=== PATIENT | female | born 1970 | race Caucasian/White ===

== ENCOUNTER → 2017-05-02 | Day surgery (SDC) | payer OTHER ==
[~2017-05-02] VITALS: Ht 177.8 cm; Wt 81.5 kg
[~2017-05-02] MED LIST: *MEPERIDINE 25 MG INJ VIAL PERIprocedural Use ONLY ONE; ACETAMINOPHEN/HYDROcodone 325 MG/5 MG TAB PO PRN; BUPIVACAINE/EPINEPHRINE 0.5% PF 10 ML VIAL INFIL ONE; CHLORHEXIDINE GLUCONATE 2 % 1 PACK (2 CLOTHS) TOPICAL PRN; CHLORHEXIDINE GLUCONATE 4% SOLN 120 ML BTL TOPICAL SCH; ESTR0.5T PO; FAMOTIDINE 20 MG/2 ML VIAL ONE; GABA300C5 PO; HYDR-4107 PO; INSULIN HUMAN REGULAR 1,000 UNITS/10 ML VIAL SQ PRN; KETOROLAC TROMETHAMINE 30 MG/ML (IVP) VIAL IM PRN; LACTATED RINGER'S 1000 ML IV PRN; MELO-1 PO; METOPROLOL TARTRATE 25 MG TAB PO PRN; MIDAZOLAM HCL 2 MG/2 ML VIAL ONE; MORPHINE SULFATE 8 MG/ML INJ ONE; ONDANSETRON HCL 4 MG/2 ML VIAL IV PUSH ONE; ONDANSETRON HCL 4 MG/2 ML VIAL IV PUSH PRN; POVIDONE IODINE 5% (ANTISEPSIS KIT) 4 APPLICATIONS EACH NARE PRN; PROPOFOL 200 MG/20 ML AMP IV ONE; SODIUM CHLORID 0.9% 500 ML IV PRN; TRIAMCINOLONE ACETONIDE 40 MG/ML VIAL ONE; fentaNYL CITRATE 250 MCG/5 ML AMP ONE
[2017-05-02 10:55] VITALS: PULSE 84
[2017-05-02 11:45] VITALS: PULSE 64; TEMP 97.7
[2017-05-02 12:30] VITALS: BP 139/87; PULSE 72; RESP 16; O2SAT 99
--- NOTE | 2017-05-05 09:15 | MP ---
cc: ROMAIN BARNES M.D. DATE OF SURGERY 05/02/2017 PREOPERATIVE DIAGNOSIS Internal derangement of the right knee joint. POSTOPERATIVE DIAGNOSIS Tear lateral meniscus right knee joint with osteochondral lesion lateral femoral condyle. PROCEDURE Arthroscopic chondroplasty lateral femoral condyle and subtotal lateral meniscectomy. DETAILS OF PROCEDURE The patient was placed on the operating room table in the supine position. Adequate general anesthesia was administered by the anesthesiologist. The patient's right knee was then prepped and draped in the usual sterile fashion. An Esmarch bandage was applied following a time-out. The leg was exsanguinated and a pneumatic tourniquet was inflated to 300. An anterolateral portal was used for introduction of the double cannula and the joint was distended with lactated Ringer's solution. A systematic examination was then carried out with instrumentation placed through the anterior medial portal. The patients medial compartment was quite unremarkable and the anterior cruciate ligament was somewhat frayed but intact. The posterior cruciate was intact. The patellofemoral joint was unremarkable lateral compartment did show complex tearing of the lateral meniscus extending from the anterior horn to the posterior horn. A resector was placed over that torn area and it was then resected back to normal tissue with debridement of the surrounding synovium and a chondroplasty of the lateral femoral condyle where there did appear to be some residual superficial damage. After thorough irrigation of the joint, all instruments were removed and the two stab wounds were closed with simple 3-0 nylon. An injection was carried out through the lateral portal utilizing 10 cc of 0.5% Marcaine with epinephrine and 1 mL (40 mg) of Kenalog. Xeroform gauze was applied over both wounds and a bulky dressing applied over this. The tourniquet was deflated and examination of the toes did reveal adequate return of circulation. Sponge count, needle counts and instrument counts were reportedly correct x 2. The estimated blood loss was nil. The procedure was tolerated well and the patient went to the recovery room in satisfactory condition. Romain Barnes MD GINGER/SSB /10:56 AM /9:03 AM
== END | disposition home or self-care (01) ==
LOC: PHSDC 08:44
PROVIDERS: ATTEND Orthopaedic Surgery
DX: S83.271A Complex tear of lateral meniscus, current injury, right knee, initial encounter (principal); X58.XXXA Exposure to other specified factors, initial encounter; M25.861 Other specified joint disorders, right knee; M17.11 Unilateral primary osteoarthritis, right knee; G57.93 Unspecified mononeuropathy of bilateral lower limbs; M54.2 Cervicalgia; F17.210 Nicotine dependence, cigarettes, uncomplicated; Z91.041 Radiographic dye allergy status; Z91.040 Latex allergy status; Z79.899 Other long term (current) drug therapy
CPT/HCPCS: 01400; 29881; E0113; J1885; J2175; J2250; J2270; J2405; J3010; J3301; J7120